=== PATIENT | female | born 1955 | race Caucasian/White ===

== ENCOUNTER → 2017-11-25 | Outpatient (CLI) | payer SELFPAY ==
[~2017-11-25] MED LIST: ASP81TEC PO; CARV12.53 PO; CLOP75TA PO; HCT25T PO; LISI40TA PO; METF-380 PO; NTR.4SL SL; OMEP-10 PO; SIMV40TA2 PO; [UNRECOGNIZED DRUG - CODE]
--- NOTE | 2017-11-25 14:22 | Diagnostic Imaging Report ---
PROCEDURE: CT abdomen and pelvis with and without contrast. TECHNIQUE: Precontrast acquisitions were acquired through the abdomen and pelvis. Multiple contiguous axial images were obtained through the abdomen and pelvis after the administration of intravenous contrast. INDICATION: Microhematuria. FINDINGS: The lung bases are clear. The liver is normal in size without focal lesions. Gallbladder is unremarkable. There is no biliary ductal dilatation. Spleen is normal. Pancreas and adrenal glands are unremarkable. There is a small right renal cyst. There is no evidence of obstructive uropathy. There is moderate atherosclerotic calcification of the aorta which is non-aneurysmal.. The bowel gas pattern is nonspecific. There is no free air. There is no ascites. There are no focal inflammatory changes. Bladder is normal. There are degenerative changes in the spine. Impression: Right renal cyst which contains some minimal calcification. There is however no evidence of nephrolithiasis or obstructive uropathy. No other acute abnormality of the abdomen or pelvis. Dictated by: Dictated on workstation # [id number]
== END ==
LOC: RAD 11:38
PROVIDERS: ATTEND Nurse Practitioner Family
DX: N28.1 Cyst of kidney, acquired (principal); R31.29 Other microscopic hematuria
CPT/HCPCS: 74178